=== PATIENT | male | born 1995 | race Caucasian/White ===

== ENCOUNTER 2021-01-27 19:22 | Emergency (ER) | payer OTHER ==
[2021-01-27 19:27] VITALS: BP 163/89; PULSE 77; RESP 18; TEMP 98.7
--- NOTE | 2021-01-27 20:02 | ED ---
General Adult HPI - General Chief complaint: Upper Respiratory Infection Stated complaint: Covid+,Cough,Body ache Time Seen by Provider: 01/27/21 19:34 Source: patient Mode of arrival: ambulatory Limitations: no limitations - History of Present Illness Initial comments: 25-year-old male presents to the emergency department requesting a closet. Patient states he had an at-home test that was positive and is concerned because he has one month old infant. Patient states his symptoms began 2 days ago with the a sore throat, mild cough, and nasal drainage. Patient states he did take Tylenol earlier today to treat his symptoms. Denies fever, chills, dizziness, chest pain, shortness of breath, difficulty breathing, abdominal pain, constipation, diarrhea, dysuria, or hematuria. - Related Data Allergies Allergy/AdvReac Type Severity Reaction Status Date / Time No Known Allergies Allergy Verified 01/27/21 19:27 Review of Systems ROS Statement: Those systems with pertinent positive or pertinent negative responses have been documented in the HPI. ROS Other: All systems not noted in ROS Statement are negative. Past Medical History Past Medical History: No Reported History History of Any Multi-Drug Resistant Organisms: None Reported Past Surgical History: No Surgical Hx Reported Past Psychological History: No Psychological Hx Reported Smoking Status: Never smoker Past Alcohol Use History: None Reported Past Drug Use History: None Reported General Exam Limitations: no limitations (Well-developed, well-nourished male in no acute distress. Initial temperature 98.7, pulse 77, respirations 18, blood pressure 163/89, pulse ox 98% on room air.) General appearance: alert, in no apparent distress ENT exam: Present: normal exam, normal oropharynx, mucous membranes moist Neck exam: Present: normal inspection. Absent: tenderness, meningismus, lymphadenopathy Respiratory exam: Present: normal lung sounds bilaterally. Absent: respiratory distress, wheezes, rales, rhonchi, stridor Cardiovascular Exam: Present: regular rate, normal rhythm, normal heart sounds. Absent: systolic murmur, diastolic murmur, rubs, gallop, clicks GI/Abdominal exam: Present: soft, normal bowel sounds. Absent: distended, tenderness, guarding, rebound, rigid Neurological exam: Present: alert, oriented X3, CN II-XII intact Psychiatric exam: Present: normal affect, normal mood Skin exam: Present: warm, dry, intact, normal color. Absent: rash Course Vital Signs 01/27/21 19:24 Temperature 98.7 F Pulse Rate 77 Respiratory 18 Rate Blood Pressure 163/89 O2 Sat by Pulse 98 Oximetry Medical Decision Making - Medical Decision Making This is a 25-year-old male who presents to the emergency department requesting a Covid test. Upon exam, patient is well-appearing and in no acute distress. Vital signs are stable. Physical exam findings are unremarkable. He did test positive for Covid while in the emergency department. He is instructed quarantine for 10 days from symptom onset and to treat body aches and fever with Tylenol or Motrin. Patient will be discharged home to follow up with his PCP as needed. Return parameters were discussed in detail. Patient verbalizes understanding and agrees with this plan. - Lab Data Lab Results 01/27/21 Range/Units 20:14 Influenza Type A (PCR) Not Detected (Not Detectd) Influenza Type B (PCR) Not Detected (Not Detectd) RSV (PCR) Not Detected (Not Detectd) SARS-CoV-2 (PCR) Detected A (Not Detectd) Disposition Clinical Impression: COVID-19 Disposition: HOME SELF-CARE Condition: Stable Instructions (If sedation given, give patient instructions): Coronavirus Disease 2019 (COVID-19) Additional Instructions: Alternate Tylenol and Motrin as needed for fever and body aches. You should quarantine for 10 days from symptom onset. Take vitamin C, vitamin D, and zinc. Increase fluids. Follow-up with your primary care provider for a recheck. Return to the emergency department with any new, worsening, or concerning symptoms. Is patient prescribed a controlled substance at d/c from ED?: No Referrals: None,Stated [Primary Care Provider] - 1-2 days Time of Disposition: 21:10
== END 2021-01-27 21:34 | disposition home or self-care (01) ==
LOC: EC 19:22
DX: U07.1 COVID-19 (principal)
CPT/HCPCS: 87636; 99283

== ENCOUNTER 2021-12-14 06:08 | Emergency (ER) | payer OTHER ==
[2021-12-14 06:16] VITALS: TEMP 98.4
[2021-12-14] MEDS ORDERED: LORazepam 2 MG/ML INJ IV STA (06:27)
--- NOTE | 2021-12-14 06:33 | ED ---
Chest Pain HPI - General Chief Complaint: Chest Pain Stated Complaint: Chest Pain, shortness of breath Time Seen by Provider: 12/14/21 06:14 Source: patient, RN notes reviewed Mode of arrival: ambulatory - History of Present Illness Initial Comments: Patient is a 26 year old male presenting to the ER with a chief complaint of left sided chest pain. He reports this began a couple of days ago and describes it as a burning/tightness feeling radiating to his armpit and elbow. He denies associated shortness of breath. Denies cardiac history or any current medications. Denies abdominal pain. Patient denies any injuries or known triggers. - Related Data Allergies Allergy/AdvReac Type Severity Reaction Status Date / Time No Known Allergies Allergy Verified 01/27/21 19:27 Review of Systems ROS Statement: Those systems with pertinent positive or pertinent negative responses have been documented in the HPI. ROS Other: All systems not noted in ROS Statement are negative. EKG Findings - EKG Comments: EKG Findings:: EKG performed at 6:37 by hi normal sinus rhythm rate of 71 NC 150 QRS 88 QT/QTC 364/387 nonspecific T-wave inversion aVL - EKG Results: EKG: interpreted by RENAN Past Medical History Past Medical History: No Reported History History of Any Multi-Drug Resistant Organisms: None Reported Past Surgical History: No Surgical Hx Reported Past Psychological History: No Psychological Hx Reported Smoking Status: Never smoker Past Alcohol Use History: None Reported Past Drug Use History: None Reported General Exam General appearance: alert, in no apparent distress, anxious Respiratory exam: Present: normal lung sounds bilaterally. Absent: respiratory distress, wheezes, rales, rhonchi, stridor Cardiovascular Exam: Present: normal rhythm, tachycardia GI/Abdominal exam: Present: soft, normal bowel sounds. Absent: distended, tenderness, guarding, rebound, rigid Neurological exam: Present: alert, oriented X3, CN II-XII intact Psychiatric exam: Present: normal affect, normal mood, anxious Skin exam: Present: warm, dry, intact, normal color. Absent: rash Course Vital Signs 12/14/21 12/14/21 06:13 06:53 Temperature 98.4 F Pulse Rate 80 68 Respiratory 16 18 Rate Blood Pressure 123/74 116/74 O2 Sat by Pulse 100 98 Oximetry Chest Pain MDM - MDM 26-year-old presented for left-sided chest pain atypical. Workup was negative including EKG, chest x-ray and lab work. Troponin negative patient feels better after Ativan. Return parameters were discussed. I do believe this is muscle skeletal in nature Disposition Clinical Impression: Chest wall pain Disposition: HOME SELF-CARE Condition: Stable Instructions (If sedation given, give patient instructions): Chest Pain (ED) Additional Instructions: Please return to the Emergency Department if symptoms worsen or any other concerns. Is patient prescribed a controlled substance at d/c from ED?: No Referrals: None,Stated [Primary Care Provider] - 1-2 days Time of Disposition: 07:20
[2021-12-14 06:45] LABS: Basophils % (A) 1 %; Eosinophils # (A) 0.2 k/uL (0-0.7); Eosinophils % (A) 4 %; HCT 43.3 % (39.0-53.0); HGB 15.5 gm/dL (13.0-17.5); Lymphocytes # (A) 2.4 k/uL (1.0-4.8); Lymphocytes % (A) 38 %; MCHC 35.7 g/dL (31.0-37.0); MCV 86.7 fL (80.0-100.0); Mean Platelet Volume 8.7; Monocytes # (A) 0.5 k/uL (0-1.0); Monocytes % (A) 8 %; Neutrophils % (A) 47 %; Platelet Count 223 k/uL (150-450); RDW 12.1 % (11.5-15.5); WBC 6.5 k/uL (3.8-10.6)
--- NOTE | 2021-12-14 06:47 | XR ---
EXAMINATION TYPE: XR chest 2V DATE OF EXAM: 12/14/2021 COMPARISON: NONE HISTORY: Chest pain TECHNIQUE: 2 view FINDINGS: Heart and mediastinum are normal. Lungs are clear. Diaphragm is normal. Bony thorax appears normal. IMPRESSION: Normal chest.
[2021-12-14 06:54] VITALS: RESP 18
[2021-12-14 06:59] LABS: ALT 29 U/L (4-49); AST 31 U/L (17-59); African American GFR (CKD) >90 (>60 ml/min/1.73 sqM); Albumin 5.7 g/dL (3.5-5.0); Alkaline Phosphatase 61 U/L (38-126); Anion Gap 15 mmol/L; Blood Urea Nitrogen 15 mg/dL (9-20); Calcium 10.2 mg/dL (8.4-10.2); Carbon Dioxide 24 mmol/L (22-30); Chloride 101 mmol/L (98-107); Glucose 121 mg/dL (74-99); Non-African American GFR(CKD) >90 (>60 ml/min/1.73 sqM); Sodium 140 mmol/L (137-145); Total Bilirubin 0.9 mg/dL (0.2-1.3); Total Protein 8.5 g/dL (6.3-8.2)
[2021-12-14 07:44] VITALS: BP 123/69; PULSE 93
== END 2021-12-14 07:43 | disposition home or self-care (01) ==
LOC: EC 06:08
DX: R07.89 Other chest pain (principal)
CPT/HCPCS: 36415; 93005; 80053; 84484; 85025; 71046; 99285; 96374; J2060

== ENCOUNTER → 2022-02-13 | Outpatient (CLI) | payer OTHER ==
--- NOTE | 2022-02-13 11:29 | US ---
EXAMINATION TYPE: US groin LT DATE OF EXAM: 02/13/2022 COMPARISON: NONE CLINICAL HISTORY: R10.2 PELVIC AND PERINEAL PAIN. Left groin area pain. Scanned left groin area of concern. Bowel seen peristalsing. Multiple hypoechoic area seen largest me asuring 2.0 x 0.9 cm. Bowel-containing hernia present during real-time scanning. Prominent but benign-appearing subcentimet er lymph node left groin marked by technologist. No concerning solid or cystic mass or fluid collecti on is present. IMPRESSION: As above.
== END | disposition home or self-care (01) ==
LOC: RADUSWWP 10:34
PROVIDERS: ATTEND Neurological Surgery
DX: K40.90 Unilateral inguinal hernia, without obstruction or gangrene, not specified as recurrent (principal)